=== PATIENT | male | born 1945 | race Caucasian/White ===

== ENCOUNTER 2017-07-21 14:38 | Outpatient (CLI) | payer MEDICARE ==
[2017-07-21 12:53] LABS: BASOPHILS % (AUTO) 0.6 %; EOSINOPHILS # (AUTO) 0.2 10^3/uL (0.0-0.7); EOSINOPHILS % (AUTO) 3.7 %; HCT - HEMATOCRIT 47.9 % (42.0-52.0); HGB - HEMOGLOBIN 16.1 g/dL (14.0-18.0); LYMPHOCYTES # (AUTO) 1.3 10^3/uL (1.5-3.5); MEAN CORPUSCULAR HEMOGLOBIN 33.3 pg (27.0-31.0); MEAN CORPUSCULAR HGB CONC 33.7 g/dL (32.0-36.0); MEAN CORPUSCULAR VOLUME 98.8 fL (80.0-94.0); MEAN PLATELET VOLUME 9.1 fL (7.4-11.4); MONOCYTES # (AUTO) 0.5 10^3/uL (0.0-1.0); MONOCYTES % (AUTO) 8.9 %; NEUTROPHILS % (AUTO) 64.8 %; RED BLOOD COUNT 4.85 10^6/uL (4.70-6.10); RED CELL DISTRIBUTION WIDTH 14.1 % (12.0-15.0); UNCORRECTED WHITE BLOOD COUNT 6.1 x10^3/uL; WHITE BLOOD COUNT 6.1 x10^3/uL (4.8-10.8)
[2017-07-21 13:07] LABS: ALBUMIN/GLOBULIN RATIO 1.6 (1.0-2.2); BILIRUBIN,TOTAL 0.5 mg/dL (0.2-1.0); BUN - BLOOD UREA NITROGEN 11 mg/dL (6-20); CALCIUM 9.8 mg/dL (8.5-10.3); CARBON DIOXIDE - CO2 28 mmol/L (21-32); CHLORIDE 100 mmol/L (101-111); CHOL/HDL RATIO 2.3 (<5.0); CHOLESTEROL 173 mg/dL; CREATININE 1.4 mg/dL (0.6-1.2); GFR - MDRD 50 (>89); GLUCOSE 105 mg/dL (70-100); HDL CHOLESTEROL 74 mg/dL; LDL/HDL RATIO 1.2 (<3.6); POTASSIUM 4.1 mmol/L (3.5-5.0); SODIUM 139 mmol/L (135-145); TOTAL PROTEIN 7.6 g/dL (6.7-8.2); TRIGLYCERIDES 56 mg/dL; VLDL CHOLESTEROL 11 mg/dL
[2017-07-21 13:18] LABS: HEMOGLOBIN A1C 0.61 g/dL
== END 2017-07-21 14:39 | disposition home or self-care (01) ==
LOC: LAB.WCP 14:38
PROVIDERS: ATTEND Family Medicine
DX: I12.9 Hypertensive chronic kidney disease with stage 1 through stage 4 chronic kidney disease, or unspecified chronic kidney disease (principal); N18.9 Chronic kidney disease, unspecified; J44.9 Chronic obstructive pulmonary disease, unspecified; E87.5 Hyperkalemia; K21.9 Gastro-esophageal reflux disease without esophagitis; E78.5 Hyperlipidemia, unspecified; F10.99 Alcohol use, unspecified with unspecified alcohol-induced disorder; Z79.899 Other long term (current) drug therapy; Z12.5 Encounter for screening for malignant neoplasm of prostate
CPT/HCPCS: 36415; 80053; 80061; 83036; 84443; 85025; G0103; 84153

== ENCOUNTER 2018-07-12 09:30 | Outpatient (CLI) | payer MEDICARE, OTHER ==
[2018-07-12 14:59] LABS: PT - PROTHROMBIN TIME 10.8 secs (9.9-12.6)
[2018-07-12 15:07] LABS: BASOPHILS % (AUTO) 0.4 %; EOSINOPHILS # (AUTO) 0.2 10^3/uL (0.0-0.7); LYMPHOCYTES # (AUTO) 1.3 10^3/uL (1.5-3.5); LYMPHOCYTES % (AUTO) 16.9 %; MEAN CORPUSCULAR HEMOGLOBIN 33.4 pg (27.0-31.0); MEAN CORPUSCULAR HGB CONC 34.2 g/dL (32.0-36.0); MEAN CORPUSCULAR VOLUME 97.6 fL (80.0-94.0); MEAN PLATELET VOLUME 9.1 fL (7.4-11.4); MONOCYTES # (AUTO) 0.7 10^3/uL (0.0-1.0); MONOCYTES % (AUTO) 8.9 %; NEUTROPHILS # (AUTO) 5.6 10^3/uL (1.5-6.6); NEUTROPHILS % (AUTO) 70.8 %; PLT - PLATELET COUNT 245 10^3/uL (130-450); RED BLOOD COUNT 4.79 10^6/uL (4.70-6.10); RED CELL DISTRIBUTION WIDTH 13.6 % (12.0-15.0); WHITE BLOOD COUNT 7.9 x10^3/uL (4.8-10.8)
[2018-07-12 15:21] LABS: BILIRUBIN,URINE NEGATIVE (NEGATIVE); GLUCOSE, URINE (UA) NEGATIVE (NEGATIVE); KETONES,URINE (UA) NEGATIVE (NEGATIVE); LEUKOCYTE ESTERASE, URINE NEGATIVE (NEGATIVE); NITRITE,URINE NEGATIVE (NEGATIVE); OCCULT BLOOD,URINE TRACE-INTA (NEGATIVE); PROTEIN,URINE NEGATIVE (NEGATIVE); UROBILINOGEN,URINE 0.2 (NORMAL) E.U./dL (NORMAL)
[2018-07-12 15:39] LABS: BACTERIA,URINE None Seen /HPF (None Seen); CLARITY,URINE CLEAR (CLEAR); RBC,URINE None Seen /HPF (0-5); SQUAMOUS EPITHELIAL CELL,UR NONE SEEN (<= Few)
[2018-07-12 15:47] LABS: ALBUMIN 3.9 g/dL (3.2-5.5); ALBUMIN/GLOBULIN RATIO 1.3 (1.0-2.2); ALKALINE PHOSPHATASE 57 IU/L (42-121); ALT ALANINE AMINOTRANSFERASE 12 IU/L (10-60); AST ASPARTATE AMINOTRANSFERASE 19 IU/L (10-42); BILIRUBIN,TOTAL 0.8 mg/dL (0.2-1.0); BUN - BLOOD UREA NITROGEN 9 mg/dL (6-20); CALCIUM 9.9 mg/dL (8.5-10.3); CARBON DIOXIDE - CO2 26 mmol/L (21-32); CHLORIDE 99 mmol/L (101-111); CHOL/HDL RATIO 3.2 (<5.0); CHOLESTEROL 206 mg/dL; CREATININE 1.4 mg/dL (0.6-1.2); GFR - MDRD 50 (>89); GLUCOSE 99 mg/dL (70-100); HDL CHOLESTEROL 65 mg/dL; LDL CHOLESTEROL,CALCULATED 123 mg/dL; LDL/HDL RATIO 1.9 (<3.6); SODIUM 135 mmol/L (135-145); TOTAL PROTEIN 6.8 g/dL (6.7-8.2); VLDL CHOLESTEROL 18 mg/dL
== END 2018-07-12 23:59 ==
LOC: LAB.WCP 09:30
PROVIDERS: ATTEND Physician Assistant Medical
DX: E78.5 Hyperlipidemia, unspecified (principal); R31.9 Hematuria, unspecified; K21.9 Gastro-esophageal reflux disease without esophagitis; F10.99 Alcohol use, unspecified with unspecified alcohol-induced disorder
CPT/HCPCS: 36415; 80053; 80061; 81001; 83721; 85025; 85610; 87086

== ENCOUNTER 2019-10-14 10:56 | Outpatient (CLI) | payer MEDICARE, OTHER | END 2019-10-14 10:57 | disposition critical access hospital (66) | LOC: EMS 10:56 | PROVIDERS: ATTEND Surgery | DX: R05 Cough (principal); R06.02 Shortness of breath; R68.83 Chills (without fever); R53.1 Weakness | CPT/HCPCS: A0425; A0427 ==

== ENCOUNTER 2019-10-14 11:19 | Emergency (ER) | payer MEDICARE, OTHER ==
[2019-10-14 11:59] LABS: BASOPHILS % (AUTO) 0.3 %; EOSINOPHILS % (AUTO) 0.3 %; HGB - HEMOGLOBIN 12.8 g/dL (14.0-18.0); LYMPHOCYTES % (AUTO) 3.9 %; MEAN CORPUSCULAR HEMOGLOBIN 32.6 pg (27.0-31.0); MEAN CORPUSCULAR HGB CONC 32.9 g/dL (32.0-36.0); MEAN PLATELET VOLUME 10.1 fL (7.4-11.4); MONOCYTES % (AUTO) 8.6 %; NEUTROPHILS % (AUTO) 86.4 %; PLT - PLATELET COUNT 224 10^3/uL (130-450); RED BLOOD COUNT 3.93 10^6/uL (4.70-6.10); RED CELL DISTRIBUTION WIDTH 13.2 % (12.0-15.0)
--- NOTE | 2019-10-14 12:16 | XRAY Report ---
Reason: Productive cough, chills Procedure Date: 10/14/2019 Accession Number: [id number] / [id number] Procedure: XR - Chest 2 View X-Ray CPT Code: 09514 Final Report FULL RESULT: EXAM: CHEST RADIOGRAPHY EXAM DATE: 10/14/2019 11:48 AM. CLINICAL HISTORY: Productive cough, chills. COMPARISON: None. TECHNIQUE: 2 views. FINDINGS: Lungs/Pleura: Bronchial wall thickening centrally. Small amount of reticulation at the lung bases. No other focal consolidation or pleural effusions. No pneumothorax. Mediastinum: Cardiac silhouette size appears unremarkable. Mild vascular calcifications. Other: None. IMPRESSION: Bronchial wall thickening centrally, suggesting airways disease. Small amount of reticulation at the lung bases may represent a combination of atelectasis, scarring, and/or mild pneumonitis. No other focal consolidation or pleural effusions. RADIA
[2019-10-14 12:18] LABS: ALBUMIN 3.5 g/dL (3.2-5.5); ALBUMIN/GLOBULIN RATIO 1.1 (1.0-2.2); BILIRUBIN,TOTAL 0.8 mg/dL (0.2-1.0); CALCIUM 9.1 mg/dL (8.5-10.3); CREATININE 1.3 mg/dL (0.6-1.2); TOTAL PROTEIN 6.8 g/dL (6.7-8.2)
[2019-10-14] MEDS ORDERED: SODIUM CHLORIDE 0.9% 1,000 ML IV ONE (12:36)
[2019-10-14] MEDS ORDERED: methylPREDNISolone SUCCINATE 125 MG/2 ML VIAL IVP STA (12:36)
[2019-10-14] MEDS ORDERED: cefTRIAXone 1 GM in SODIUM CHLORIDE 0.9% MINIBAG 100 ML IV STA (12:36)
[2019-10-14] MEDS ORDERED: ALBUTEROL NEB 2.5 MG/3 ML INH STA (12:36)
[2019-10-14 12:37] LABS: ABNORMAL LYMPHS % (MANUAL) 0 %
[2019-10-14 12:38] LABS: BAND NEUTROPHILS % (MANUAL) 16 %; LYMPHOCYTES # (MANUAL) 0.3 10^3/uL (1.5-3.5); LYMPHOCYTES % (MANUAL) 3 %; MONOCYTES # (MANUAL) 1.2 10^3/uL (0.0-1.0); RBC MORPHOLOGY (MULTIPLE) 1+ POLYCHROMASIA (NORMAL)
--- NOTE | 2019-10-14 12:38 | ED Physician Documentation ---
History of Present Illness - Stated complaint Stated Complaint: COUGH/ - Chief complaint Chief Complaint: Resp - History obtained from History obtained from: Patient (74-year-old gentleman with history of COPD who takes as needed albuterol and nothing else for the COPD presents with 5 days of illness marked with productive cough and some shortness of breath. He did have runny nose and sore throat at the outset but those are better now. He does feel better after a nebulizer treatment on the way and given by EMS. Denies pedal edema calf pain, chest pain. No fevers.), EMS Review of Systems Constitutional: reports: Fatigue. denies: Fever Nose: reports: Rhinorrhea / runny nose Throat: denies: Sore throat Respiratory: reports: Dyspnea, Cough. denies: Hemoptysis, Wheezing GI: denies: Abdominal Pain, Nausea, Vomiting PD PAST MEDICAL HISTORY - Past Medical History Past Medical History: No Cardiovascular: Hypertension, High cholesterol - Past Surgical History Past Surgical History: No - Present Medications Home Medications: Ambulatory Orders Medication Instructions Recorded Confirmed Albuterol Sulf [Ventolin Hfa 1 - 2 puffs INH Q4HR PRN #1 inhaler 10/14/19 Inhaler] Doxycycline Hyclate 100 mg PO BID #14 capsule 10/14/19 Simvastatin 10 mg PO 10/14/19 amLODIPine [Norvasc] 10/14/19 atenoloL [Atenolol] 25 mg PO 10/14/19 predniSONE [Deltasone] 20 mg PO [id number] #21 tab 10/14/19 traZODone [Desyrel] 10/14/19 - Social History Does the pt smoke?: Yes Smoking Status: Current every day smoker Does the pt drink ETOH?: Yes Does the pt have substance abuse?: No - Immunizations Immunizations are current?: Yes PD ED PE NORMAL - Vitals Vital signs reviewed: Yes (Borderline pulse oximetry) - General General: Alert and oriented X 3, No acute distress - HEENT HEENT: PERRL, EOMI - Neck Neck: Supple, no meningeal sign, No bony TTP - Cardiac Cardiac: RRR, No murmur - Respiratory Respiratory: No respiratory distress, Other (Wheezy and rhonchorous throughout, nonlabored) - Abdomen Abdomen: Non tender - Extremities Extremities: No edema, No calf tenderness / cord - Neuro Neuro: Alert and oriented X 3, Normal speech Results - Vitals Vitals: Vital Signs - 24 hr 10/14/19 10/14/19 10/14/19 11:20 13:05 13:44 Temperature 37.4 C Heart Rate 89 80 86 Respiratory 20 20 18 Rate Blood Pressure 134/116 H 97/75 O2 Saturation 90 L 94 Oxygen O2 Source Room air Oxygen Flow Rate 2 - Labs Labs: Laboratory Tests 10/14/19 10/14/19 10/14/19 11:47 11:47 11:47 WBC 11.0 H RBC 3.93 L Hgb 12.8 L Hct 38.9 L MCV 99.0 H MCH 32.6 H MCHC 32.9 RDW 13.2 Plt Count 224 MPV 10.1 Neut # (Auto) Not Reportable Lymph # (Auto) Not Reportable [place] # (Auto) Not Reportable Eos # (Auto) Not Reportable Baso # (Auto) Not Reportable Absolute Nucleated RBC Not Reportable Total Counted 100 Band Neuts % (Manual) 16 H Abnorm Lymph % (Manual) 0 Nucleated RBC % Not Reportable Neutrophils # (Manual) 9.5 H Lymphocytes # (Manual) 0.3 L Monocytes # (Manual) 1.2 H Eosinophils # (Manual) 0.0 Basophils # (Manual) 0.0 Differential Comment MANUAL DIFFERENTIAL Manual Slide Review Indicated Platelet Estimate NORMAL (130-450,000) Platelet Morphology NORMAL APPEARANCE RBC Morph Micro Appear 1+ POLYCHROMASIA Sodium 135 Potassium 4.0 Chloride 97 L Carbon Dioxide 28 Anion Gap 10.0 BUN 51 H Creatinine 1.3 H Estimated GFR (MDRD) 54 L Glucose 126 H Lactic Acid 1.3 Calcium 9.1 Total Bilirubin 0.8 AST 50 H ALT 33 Alkaline Phosphatase 30 L Total Protein 6.8 Albumin 3.5 Globulin 3.3 Albumin/Globulin Ratio 1.1 Lipase 30 - Rads (name of study) 2 view chest x-ray Radiology: EMP read contemporaneously (Central bronchial wall thickening and small amount of reticulation at the lung bases) PD MEDICAL DECISION MAKING - ED course ED course: 74-year-old gentleman presents with a COPD exacerbation, no evidence of coronary event or PE. Feels better already after a DuoNeb in route and received another neb here. Also some antibiotics and steroids. Also some IV fluids for apparent dehydration noted with elevated BUN over his baseline creatinine. After the above treatments he was ambulated in the streeter, he remained with oxygen saturations of 92% or better and feeling good. Departure - Departure Disposition: 01 Home, Self Care Clinical Impression: COPD exacerbation Condition: Good Record reviewed to determine appropriate education?: Yes Instructions: COPD Dc Prescriptions: Albuterol Sulf [Ventolin Hfa Inhaler] 1 - 2 puffs INH Q4HR PRN #1 inhaler PRN Reason: Shortness Of Air/Wheezing Doxycycline Hyclate 100 mg PO BID #14 capsule predniSONE [Deltasone] 20 mg PO [id number] #21 tab Comments: Today you presented by ambulance for an exacerbation of COPD which was treated with antibiotics, inhalers, and steroids. We are also prescribing these things which you need to take as directed. Return anytime if worse. Is is imperative to quit smoking completely says that your lungs do not continue to go downhill. Follow-up with your primary care physician, next available appointment.
[2019-10-14 12:39] LABS: DIFFERENTIAL COMMENT MANUAL DIFFERENTIAL; PLATELET ESTIMATE, MANUAL NORMAL (130-450,000) (NORMAL); PLATELET MORPHOLOGY NORMAL APPEARANCE (NORMAL)
[2019-10-14 13:45] VITALS: BP 97/75
== END 2019-10-14 14:08 | disposition home or self-care (01) ==
LOC: EDUNIT# → ED 11:19
DX: J44.1 Chronic obstructive pulmonary disease with (acute) exacerbation (principal); E86.0 Dehydration; I10 Essential (primary) hypertension; F17.200 Nicotine dependence, unspecified, uncomplicated
CPT/HCPCS: 36415; 71046; 80053; 83605; 83690; 85025; 94640; 96365; 96375; 99284

== ENCOUNTER 2020-10-03 08:00 | Outpatient (CLI) | payer MEDICARE, OTHER ==
[2020-10-03 18:22] LABS: BASOPHILS # (AUTO) 0.1 10^3/uL (0.0-0.1); BASOPHILS % (AUTO) 0.8 %; EOSINOPHILS # (AUTO) 0.2 10^3/uL (0.0-0.7); EOSINOPHILS % (AUTO) 3.1 %; LYMPHOCYTES % (AUTO) 16.7 %; MEAN CORPUSCULAR HEMOGLOBIN 31.4 pg (27.0-31.0); MEAN CORPUSCULAR HGB CONC 32.7 g/dL (32.0-36.0); MEAN PLATELET VOLUME 10.2 fL (7.4-11.4); MONOCYTES # (AUTO) 0.8 10^3/uL (0.0-1.0); MONOCYTES % (AUTO) 13.1 %; NEUTROPHILS % (AUTO) 65.8 %; PLT - PLATELET COUNT 292 10^3/uL (130-450); RED BLOOD COUNT 4.78 10^6/uL (4.70-6.10); RED CELL DISTRIBUTION WIDTH 14.8 % (12.0-15.0); WHITE BLOOD COUNT 6.1 x10^3/uL (4.8-10.8)
[2020-10-03 18:47] LABS: ALBUMIN 4.5 g/dL (3.2-5.5); ALBUMIN/GLOBULIN RATIO 1.6 (1.0-2.2); ALKALINE PHOSPHATASE 40 IU/L (42-121); ALT ALANINE AMINOTRANSFERASE 36 IU/L (10-60); AST ASPARTATE AMINOTRANSFERASE 53 IU/L (10-42); BILIRUBIN,TOTAL 1.2 mg/dL (0.2-1.0); BUN - BLOOD UREA NITROGEN 12 mg/dL (6-20); CALCIUM 10.1 mg/dL (8.5-10.3); CARBON DIOXIDE - CO2 28 mmol/L (21-32); CHLORIDE 95 mmol/L (101-111); CHOL/HDL RATIO 1.8 (<5.0); CHOLESTEROL 181 mg/dL; CREATININE 1.3 mg/dL (0.6-1.2); GLUCOSE 93 mg/dL (70-100); HDL CHOLESTEROL 103 mg/dL; LDL CHOLESTEROL,CALCULATED 65 mg/dL; LDL/HDL RATIO 0.6 (<3.6); TOTAL PROTEIN 7.4 g/dL (6.7-8.2); VLDL CHOLESTEROL 13 mg/dL
== END 2020-10-03 23:59 | disposition home or self-care (01) ==
LOC: LAB.WCP 08:00
PROVIDERS: ATTEND Physician Assistant Medical
DX: I12.9 Hypertensive chronic kidney disease with stage 1 through stage 4 chronic kidney disease, or unspecified chronic kidney disease (principal); J44.9 Chronic obstructive pulmonary disease, unspecified; N18.9 Chronic kidney disease, unspecified; E78.5 Hyperlipidemia, unspecified; E87.5 Hyperkalemia
CPT/HCPCS: 36415; 80053; 80061; 83721; 84443; 85025

== ENCOUNTER 2021-10-31 14:43 | Outpatient (CLI) | payer MEDICARE, OTHER ==
[2021-10-31 18:23] LABS: BASOPHILS # (AUTO) 0.1 10^3/uL (0.0-0.1); BASOPHILS % (AUTO) 0.7 %; EOSINOPHILS # (AUTO) 0.3 10^3/uL (0.0-0.7); EOSINOPHILS % (AUTO) 3.3 %; HCT - HEMATOCRIT 33.5 % (42.0-52.0); HGB - HEMOGLOBIN 10.2 g/dL (14.0-18.0); LYMPHOCYTES # (AUTO) 1.4 10^3/uL (1.5-3.5); LYMPHOCYTES % (AUTO) 17.3 %; MEAN CORPUSCULAR HEMOGLOBIN 22.6 pg (27.0-31.0); MEAN CORPUSCULAR HGB CONC 30.4 g/dL (32.0-36.0); MEAN CORPUSCULAR VOLUME 74.3 fL (80.0-94.0); MEAN PLATELET VOLUME 10.7 fL (7.4-11.4); MONOCYTES # (AUTO) 0.6 10^3/uL (0.0-1.0); MONOCYTES % (AUTO) 7.4 %; NEUTROPHILS # (AUTO) 5.8 10^3/uL (1.5-6.6); NEUTROPHILS % (AUTO) 71.1 %; PLT - PLATELET COUNT 371 10^3/uL (130-450); RED BLOOD COUNT 4.51 10^6/uL (4.70-6.10); RED CELL DISTRIBUTION WIDTH 20.4 % (12.0-15.0); WHITE BLOOD COUNT 8.2 x10^3/uL (4.8-10.8)
[2021-10-31 18:52] LABS: ALBUMIN 4.1 g/dL (3.2-5.5); ALBUMIN/GLOBULIN RATIO 1.3 (1.0-2.2); ALKALINE PHOSPHATASE 58 IU/L (42-121); ALT ALANINE AMINOTRANSFERASE < 10 IU/L (10-60); AST ASPARTATE AMINOTRANSFERASE 15 IU/L (10-42); BILIRUBIN,TOTAL 0.5 mg/dL (0.2-1.0); BUN - BLOOD UREA NITROGEN 15 mg/dL (6-20); CALCIUM 9.9 mg/dL (8.5-10.3); CARBON DIOXIDE - CO2 29 mmol/L (21-32); CHLORIDE 95 mmol/L (101-111); CREATININE 1.5 mg/dL (0.6-1.2); GFR - MDRD 46 (>89); GLUCOSE 108 mg/dL (70-100); LIPASE 31 U/L (22-51); POTASSIUM 4.2 mmol/L (3.5-5.0); SODIUM 133 mmol/L (135-145); TOTAL PROTEIN 7.3 g/dL (6.7-8.2)
== END 2021-10-31 14:44 | disposition home or self-care (01) ==
LOC: LAB.N 14:43
PROVIDERS: ATTEND Physician Assistant Medical
DX: R11.2 Nausea with vomiting, unspecified (principal)
CPT/HCPCS: 36415; 80053; 83690; 85025

== ENCOUNTER 2021-11-06 09:20 | Outpatient (CLI) | payer MEDICARE, OTHER ==
[2021-11-06] MEDS ORDERED: IOVERSOL 320 100 ML VIAL IVP ONE ×2 (09:34→10:55)
[2021-11-06] MEDS ORDERED: IOVERSOL 320 50 ML VIAL ONE (09:34)
[2021-11-06 09:46] LABS: ALBUMIN/GLOBULIN RATIO 1.4 (1.0-2.2); ALKALINE PHOSPHATASE 47 IU/L (42-121); ALT ALANINE AMINOTRANSFERASE < 10 IU/L (10-60); AST ASPARTATE AMINOTRANSFERASE 15 IU/L (10-42); BILIRUBIN,TOTAL 0.3 mg/dL (0.2-1.0); BUN - BLOOD UREA NITROGEN 15 mg/dL (6-20); CALCIUM 8.7 mg/dL (8.5-10.3); CARBON DIOXIDE - CO2 25 mmol/L (21-32); CHLORIDE 103 mmol/L (101-111); CREATININE 1.4 mg/dL (0.6-1.2); GFR - MDRD 50 (>89); GLUCOSE 104 mg/dL (70-100); SODIUM 139 mmol/L (135-145); TOTAL PROTEIN 6.8 g/dL (6.7-8.2)
[2021-11-06] MEDS ORDERED: IOVERSOL 320 50 ML VIAL PO ONE (10:55)
--- NOTE | 2021-11-06 11:11 | CT Report ---
PROCEDURE: Abdomen/Pelvis W INDICATIONS: NAUSEA VOMITING CONTRAST: IV CONTRAST: Optiray 320 ml: 100 PO CONTRAST: Optiray 320 ml50 TECHNIQUE: After the administration of oral and intravenous contrast, 5 mm thick sections acquired from the diap hragms to the symphysis. 5 mm thick coronal and sagittal reformats were acquired. For radiation dos e reduction, the following was used: automated exposure control, adjustment of mA and/or kV accordin g to patient size. COMPARISON: None. FINDINGS: Image quality: Excellent. ABDOMEN: Lung bases: Lung bases are clear. Heart size is normal. Solid organs: Liver and spleen are normal in size and enhancement. Hepatic steatosis is present. Gal lbladder is unremarkable Biliary system is non dilated. Pancreas enhances normally. No adrenal nod ules. Kidneys demonstrate mild atrophy with enhancement, without hydronephrosis. Low-attenuation fo ci are present within the kidneys bilaterally with the largest focus in the left kidney measuring 2.8 , Hounsfield units 10. Peritoneum and bowel: Bowel loops demonstrate normal wall thickness and caliber. No free fluid or a ir. Minimal scattered diverticula. There is a mild thickened appearance of the sigmoid colon without auditory change. It is incompletely distended. Nodes and vessels: No retroperitoneal or mesenteric adenopathy by size criteria. Aorta and inferior vena cava are normal in size. Miscellaneous: No ventral hernias. PELVIS: Genitourinary: Bladder wall thickness is normal. Miscellaneous: No inguinal hernias or adenopathy. Bones: No suspicious bony lesions. No vertebral body compression fractures. IMPRESSION: Mild thickened appearance of the sigmoid colon without associated inflammatory change. This is suspec lazaro to be secondary to incomplete distention. However, very early colitis cannot be definitively excl uded. Reviewed by: Nelida Carson MD on 11/06/2021 11:09 AM PDT Approved by: Nelida Carson MD on 11/06/2021 11:09 AM PDT Station ID: [id number]
== END 2021-11-06 09:21 | disposition home or self-care (01) ==
LOC: DI 09:20
PROVIDERS: ATTEND Physician Assistant Medical
DX: R11.2 Nausea with vomiting, unspecified (principal)
CPT/HCPCS: 36415; 74177; 80053; Q9967

== ENCOUNTER 2021-12-05 12:20 | Outpatient (CLI) | payer MEDICARE, OTHER ==
[2021-12-05 18:56] LABS: BASOPHILS # (AUTO) 0.1 10^3/uL (0.0-0.1); BASOPHILS % (AUTO) 0.8 %; EOSINOPHILS # (AUTO) 0.3 10^3/uL (0.0-0.7); HGB - HEMOGLOBIN 10.5 g/dL (14.0-18.0); LYMPHOCYTES # (AUTO) 1.1 10^3/uL (1.5-3.5); LYMPHOCYTES % (AUTO) 16.7 %; MEAN CORPUSCULAR HEMOGLOBIN 21.6 pg (27.0-31.0); MEAN CORPUSCULAR VOLUME 72.2 fL (80.0-94.0); MEAN PLATELET VOLUME 11.3 fL (7.4-11.4); MONOCYTES # (AUTO) 0.5 10^3/uL (0.0-1.0); MONOCYTES % (AUTO) 7.6 %; NEUTROPHILS # (AUTO) 4.5 10^3/uL (1.5-6.6); NEUTROPHILS % (AUTO) 70.7 %; PLT - PLATELET COUNT 292 10^3/uL (130-450); RED BLOOD COUNT 4.85 10^6/uL (4.70-6.10); RED CELL DISTRIBUTION WIDTH 20.6 % (12.0-15.0); WHITE BLOOD COUNT 6.3 x10^3/uL (4.8-10.8)
[2021-12-05 19:19] LABS: CALCIUM 9.7 mg/dL (8.5-10.3); CREATININE 1.5 mg/dL (0.6-1.2); POTASSIUM 4.3 mmol/L (3.5-5.0)
[2021-12-05 19:48] LABS: FERRITIN 19.9 ng/mL (23.9-336.2)
[2021-12-05 19:52] LABS: FOLATE 6.58 ng/mL (5.90 - >24.8)
== END 2021-12-05 12:21 | disposition home or self-care (01) ==
LOC: LAB.N 12:20
PROVIDERS: ATTEND Physician Assistant Medical
DX: D64.9 Anemia, unspecified (principal)
CPT/HCPCS: 36415; 80048; 82607; 82728; 82746; 85025

== ENCOUNTER 2022-05-05 10:30 | Outpatient (CLI) | payer MEDICARE, OTHER ==
[2022-05-05 12:44] LABS: BASOPHILS % (AUTO) 0.5 %; EOSINOPHILS # (AUTO) 0.2 10^3/uL (0.0-0.7); EOSINOPHILS % (AUTO) 3.4 %; HCT - HEMATOCRIT 32.8 % (42.0-52.0); HGB - HEMOGLOBIN 10.1 g/dL (14.0-18.0); LYMPHOCYTES # (AUTO) 0.9 10^3/uL (1.5-3.5); LYMPHOCYTES % (AUTO) 14.5 %; MEAN CORPUSCULAR HEMOGLOBIN 21.8 pg (27.0-31.0); MEAN CORPUSCULAR HGB CONC 30.8 g/dL (32.0-36.0); MEAN CORPUSCULAR VOLUME 70.8 fL (80.0-94.0); MONOCYTES # (AUTO) 0.7 10^3/uL (0.0-1.0); MONOCYTES % (AUTO) 11.4 %; NEUTROPHILS # (AUTO) 4.5 10^3/uL (1.5-6.6); NEUTROPHILS % (AUTO) 69.9 %; PLT - PLATELET COUNT 272 10^3/uL (130-450); RED BLOOD COUNT 4.63 10^6/uL (4.70-6.10); RED CELL DISTRIBUTION WIDTH 21.4 % (12.0-15.0); WHITE BLOOD COUNT 6.5 x10^3/uL (4.8-10.8)
[2022-05-05 13:13] LABS: ALBUMIN 4.1 g/dL (3.2-5.5); ALBUMIN/GLOBULIN RATIO 1.4 (1.0-2.2); ALKALINE PHOSPHATASE 54 IU/L (42-121); ALT ALANINE AMINOTRANSFERASE 18 IU/L (10-60); AST ASPARTATE AMINOTRANSFERASE 38 IU/L (10-42); BILIRUBIN,TOTAL 0.8 mg/dL (0.2-1.0); BUN - BLOOD UREA NITROGEN 19 mg/dL (6-20); CALCIUM 9.4 mg/dL (8.5-10.3); CARBON DIOXIDE - CO2 29 mmol/L (21-32); CHLORIDE 101 mmol/L (101-111); CHOL/HDL RATIO 1.6 (<5.0); CHOLESTEROL 186 mg/dL; CREATININE 1.4 mg/dL (0.6-1.2); GFR - MDRD 50 (>89); GLUCOSE 103 mg/dL (70-100); HDL CHOLESTEROL 114 mg/dL; LDL CHOLESTEROL,CALCULATED 64 mg/dL; LDL/HDL RATIO 0.6 (<3.6); POTASSIUM 4.3 mmol/L (3.5-5.0); SODIUM 139 mmol/L (135-145); TRIGLYCERIDES 42 mg/dL; VLDL CHOLESTEROL 8 mg/dL
== END 2022-05-05 10:31 | disposition home or self-care (01) ==
LOC: LAB.N 10:30
PROVIDERS: ATTEND Physician Assistant Medical
DX: E78.5 Hyperlipidemia, unspecified (principal); K21.9 Gastro-esophageal reflux disease without esophagitis
CPT/HCPCS: 36415; 80053; 80061; 82728; 83721; 85025

== ENCOUNTER 2023-09-01 12:01 | Outpatient (CLI) | payer MEDICARE, OTHER | END 2023-09-01 23:59 | disposition EMS.NT | LOC: EMS 12:01 | DX: R53.1 Weakness (principal); R42 Dizziness and giddiness ==

== ENCOUNTER 2023-09-02 11:54 | Outpatient (CLI) | payer MEDICARE | END 2023-09-02 23:59 | disposition critical access hospital (66) | LOC: EMS 11:54 | DX: R53.1 Weakness (principal); R29.6 Repeated falls | CPT/HCPCS: A0425; A0429 ==

== ENCOUNTER 2023-09-02 12:24 | Emergency (ER) | payer MEDICARE, OTHER ==
--- NOTE | 2023-09-02 12:56 | ED Physician Documentation ---
History of Present Illness - Stated complaint Stated Complaint: FALL - Chief complaint Chief Complaint: General - Additonal information Additional information: 77-year-old male wth hx of COPD and tobacco dependence, still smoking cigarettes, presents to the emergency department via EMS for increased generalized weakness. Patient says around 2100 last night he had a ground-level fall due to weakness 911 was dispatched who helped him up and offered to take him to the emergency department but patient declined. Patient reports this morning was trying to ambulate he is feeling ongoing increased generalized weakness. He said that he has been having weakness this been getting worse over the last month or so but feels like today it is exceptionally worse. He lives in a trailer/RV with his . He denies any chest pain or shortness of breath he denies any smoking history no cardiac history no neuro history. Patient denies any medication or supplement changes and no recent diet change. On arrival EMS reports patient was hypoglycemic, blood sugar was found to be 56 he was given oral glucose as blood glucose responded well to this. He denies any history of type 2 diabetes he is not taking any insulin or diabetic medication. PD PAST MEDICAL HISTORY - Past Medical History Cardiovascular: Hypertension, High cholesterol - Past Surgical History Past Surgical History: No - Present Medications Home Medications: Ambulatory Orders Medication Instructions Recorded Confirmed Albuterol Sulf [Ventolin Hfa 1 - 2 puffs INH Q4HR PRN #1 inhaler 10/14/19 Inhaler] Simvastatin 10 mg PO DAILY 10/14/19 amLODIPine [Norvasc] 5 mg PO DAILY 10/14/19 atenoloL [Atenolol] 25 mg PO DAILY 10/14/19 Omeprazole 40 mg PO DAILY 09/02/23 - Allergies Allergies/Adverse Reactions: Allergies Allergy/AdvReac Type Severity Reaction Status Date / Time No Known Drug Allergies Allergy Verified 09/02/23 12:38 - Social History Does the pt smoke?: Yes Smoking Status: Current every day smoker Does the pt drink ETOH?: Yes Does the pt have substance abuse?: No - Immunizations Immunizations are current?: Yes PD ED PE NORMAL - Vitals Vital signs reviewed: Yes - General General: Alert and oriented X 3, No acute distress, Other (Cachectic) - HEENT HEENT: Atraumatic, PERRL - Cardiac Cardiac: RRR, No murmur, No gallop, Strong equal pulses - Respiratory Respiratory: Other (Bilateral wheezing) - Abdomen Abdomen: Normal bowel sounds, Non tender - Derm Derm: Normal color - Extremities Extremities: No deformity, No edema, No calf tenderness / cord - Neuro Neuro: Alert and oriented X 3, bait digger 2-12 intact, No motor deficit, Other (Generalized weakness ) Eye Opening: Spontaneous Motor: Obeys Commands Verbal: Oriented GCS Score: 15 Results - Vitals Vitals: Vital Signs - 24 hr 09/02/23 09/02/23 09/02/23 12:34 12:40 13:36 Temperature 36.4 C L Heart Rate 65 72 Respiratory 17 17 17 Rate Blood Pressure 139/115 H O2 Saturation 100 09/02/23 09/02/23 09/02/23 14:01 15:00 16:49 Temperature 36.6 C Heart Rate 88 84 58 L Respiratory 17 16 17 Rate Blood Pressure 125/78 133/76 H 115/96 H O2 Saturation 99 99 98 09/02/23 09/02/23 18:10 18:51 Temperature Heart Rate 70 75 Respiratory 13 17 Rate Blood Pressure 129/70 119/71 O2 Saturation 100 98 Oxygen O2 Source Room air - EKG (time done) 1407 EKG releavant findings:: EKG personally interpreted by author of this note. Relevant findings are: Rate: Rate (enter#) (80) Rhythm: NSR [place]: RAD Intervals: Normal [place], QRS normal QRS: Normal Other comments: Other comments (Pt with mild tremors, a lot of artifact) - Labs Labs: Laboratory Tests 09/02/23 09/02/23 09/02/23 13:20 13:20 13:30 WBC 5.2 RBC 4.04 L Hgb 11.5 L Hct 38.3 L MCV 94.8 H MCH 28.5 MCHC 30.0 L RDW 17.7 H Plt Count 169 MPV 11.0 Neut # (Auto) 4.0 Lymph # (Auto) 0.7 L [place] # (Auto) 0.5 Eos # (Auto) 0.0 Baso # (Auto) 0.0 Absolute Nucleated RBC 0.00 Nucleated RBC % 0.0 Sodium 147 H Potassium 3.6 Chloride 102 Carbon Dioxide 22 Anion Gap 23.0 H BUN 16 Creatinine 1.0 Estimated GFR (MDRD) 73 L Glucose 54 L* Calcium 8.8 Magnesium 1.5 L Total Bilirubin 0.7 AST 91 H ALT 53 Alkaline Phosphatase 90 Total Protein 5.5 L Albumin 3.3 Globulin 2.2 Albumin/Globulin Ratio 1.5 TSH 3.33 Urine Color Urine Clarity Urine pH Ur Specific [place] Urine Protein Urine Glucose (UA) Urine Ketones Urine Occult Blood Urine Nitrite Urine Bilirubin Urine Urobilinogen Ur Leukocyte Esterase Urine RBC Urine WBC Ur Squamous Epith Cells Urine Bacteria Ur Microscopic Review Urine Culture Comments Nasal Adenovirus (PCR) NOT DETECTED Nasal B. parapertussis DNA (PCR) NOT DETECTED Nasal Coronavir 229E PCR NOT DETECTED Nasal Coronavir HKU1 PCR NOT DETECTED Nasal Coronavir NL63 PCR NOT DETECTED Nasal Coronavir OC43 PCR NOT DETECTED Nasal Enterovir/Rhinovir PCR NOT DETECTED Nasal Influenza B PCR NOT DETECTED Nasal Influenza A PCR NOT DETECTED Nasal Parainfluen 1 PCR NOT DETECTED Nasal Parainfluen 2 PCR NOT DETECTED Nasal Parainfluen 3 PCR NOT DETECTED Nasal Parainfluen 4 PCR NOT DETECTED Nasal RSV (PCR) NOT DETECTED Nasal B.pertussis DNA PCR NOT DETECTED Nasal C.pneumoniae (PCR) NOT DETECTED Edwin Human Metapneumo PCR NOT DETECTED Nasal M.pneumoniae (PCR) NOT DETECTED Nasal SARS-CoV-2 (PCR) NOT DETECTED Ethyl Alcohol 09/02/23 09/02/23 14:56 19:32 WBC RBC Hgb Hct MCV MCH MCHC RDW Plt Count MPV Neut # (Auto) Lymph # (Auto) [place] # (Auto) Eos # (Auto) Baso # (Auto) Absolute Nucleated RBC Nucleated RBC % Sodium Potassium Chloride Carbon Dioxide Anion Gap BUN Creatinine Estimated GFR (MDRD) Glucose Calcium Magnesium Total Bilirubin AST ALT Alkaline Phosphatase Total Protein Albumin Globulin Albumin/Globulin Ratio TSH Urine Color YELLOW Urine Clarity HAZY Urine pH 6.0 Ur Specific [place] 1.025 Urine Protein TRACE Urine Glucose (UA) NEGATIVE Urine Ketones >=80 H Urine Occult Blood NEGATIVE Urine Nitrite POSITIVE H Urine Bilirubin SMALL H Urine Urobilinogen 0.2 (NORMAL) Ur Leukocyte Esterase TRACE H Urine RBC 0-5 Urine WBC >25 H Ur Squamous Epith Cells NONE SEEN Urine Bacteria Few Ur Microscopic Review INDICATED Urine Culture Comments INDICATED Nasal Adenovirus (PCR) Nasal B. parapertussis DNA (PCR) Nasal Coronavir 229E PCR Nasal Coronavir HKU1 PCR Nasal Coronavir NL63 PCR Nasal Coronavir OC43 PCR Nasal Enterovir/Rhinovir PCR Nasal Influenza B PCR Nasal Influenza A PCR Nasal Parainfluen 1 PCR Nasal Parainfluen 2 PCR Nasal Parainfluen 3 PCR Nasal Parainfluen 4 PCR Nasal RSV (PCR) Nasal B.pertussis DNA PCR Nasal C.pneumoniae (PCR) Edwin Human Metapneumo PCR Nasal M.pneumoniae (PCR) Nasal SARS-CoV-2 (PCR) Ethyl Alcohol < 10.0 - Rads (name of study) Chest x-ray Relevant Findings:: Final report received, EMP independent interpretation of test (No acute cardiopulmonary abnormalities or findings, No consolidation) PD Medical Decision Making - ED course ED course: 77 yo M presents to ER for concerns of weakness. Per EMS BG was 56 enroute to ED, he Was able to tolerate p.o. glucose without any difficulty. By the time patient arrived to the ER serum glucose Was complete and patient continues to be hypoglycemic, blood sugar was found to be 55. He was given food as well as an IV push of D50 to help with his hypoglycemia and Repeat [id number] blood glucose was found to be 140. RN continues to try and push fluid and drinks that contain high amount of sugar patient is unable to consume many calories. 1700: I spoke with hospitalist to consider hospital admission but unfortunately patient does not meet hospital admission criteria. 1745: Rechecked [id number] blood sugar blood sugar has come down to 80. Patient remains weak and unable to consume a large amount of calories or sugar p.o. Chest x-ray complete no acute cardiopulmonary abnormalities or findings. CBC does not reveal any significant anemia contributing to his weakness, chemistry does not reveal any significant electrolyte abnormalities, TSH is 3.33. Urinalysis is positive for nitrites and leukocytes we will start him on IV ceftriaxone for this. Patient denies any dysuria or pelvic pain. I had a lengthy conversation with the patient's partner Lien who lives at home with patient they do not live in RV if she confirmed that they live in a double wide trailer and she has been having a significant amount of concerns lately about his health. She says that she is 83 and she is having a hard time taking care of him at home he has been eating minimal to nothing daily and continues to smoke cigarettes lien also endorses that she did smoke cigarettes herself. She does not drive so she is unable to come in and pick the patient up. 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 I informed Lien as well as the patient that the next steps would be doing something like a PEG tube or NG tube for enteral feedings but patient Noel adamantly declines this and said that he just wanted to go home. I informed the patient that if he were to go home there is a very good chance that he would from his hypoglycemia and patient said that he was okay with this. I informed the patient that I think he benefit from a discussion with hospice I also discussed this with patient's partner Lien and she agrees that patient would greatly benefit from hospice or long term facility. She said that she be willing to take him home but he has no way of getting home at this time. The patient and patient's partner Lien asked that I call Miriam son-in-law Dominga to discuss the findings of today. I do lengthy conversation with the patient's son-in-law Dominga who said that he has been worried about the length for some time now and says that he is continuing to lose weight at home and continuing to smoke cigarettes. There is possible concern of ongoing alcohol use and he thinks that patient would greatly benefit from hospice as well. Dominga just had a liver biopsy today so was brad novak to come pick the patient up to bring him home the patient is unable to ambulate and needs significant amount of support getting into his trailer so he will be boarded here overnight and want he said that he would be willing to come pick him up later tomorrow afternoon after social work consult. Boarding orders have been placed report given to Dr. De Los Santos due to change of shift will be further managed in the patient's care. Plan is to check patient's blood sugar frequently and start him on IV ceftriaxone for his UTI Departure - Departure Forms: PCP List
[2023-09-02] MEDS ORDERED: SODIUM CHLORIDE 0.9% 500 ML IV ONE (13:01)
[2023-09-02 13:24] LABS: BASOPHILS % (AUTO) 0.2 %; EOSINOPHILS % (AUTO) 0.2 %; HCT - HEMATOCRIT 38.3 % (42.0-52.0); HGB - HEMOGLOBIN 11.5 g/dL (14.0-18.0); LYMPHOCYTES # (AUTO) 0.7 10^3/uL (1.5-3.5); LYMPHOCYTES % (AUTO) 13.5 %; MEAN CORPUSCULAR HEMOGLOBIN 28.5 pg (27.0-31.0); MEAN CORPUSCULAR VOLUME 94.8 fL (80.0-94.0); MONOCYTES # (AUTO) 0.5 10^3/uL (0.0-1.0); MONOCYTES % (AUTO) 9.7 %; PLT - PLATELET COUNT 169 10^3/uL (130-450); RED BLOOD COUNT 4.04 10^6/uL (4.70-6.10); RED CELL DISTRIBUTION WIDTH 17.7 % (12.0-15.0); WHITE BLOOD COUNT 5.2 x10^3/uL (4.8-10.8)
--- NOTE | 2023-09-02 13:32 | XRAY Report ---
PROCEDURE: Chest 2V INDICATIONS: Weakness, wheezing TECHNIQUE: 2 views of the chest were acquired. COMPARISON: Chest x-ray 10/06/2019 FINDINGS: Surgical changes and devices: None. Lungs and pleura: No pleural effusions or pneumothorax. Lungs are clear. Mediastinum: Mediastinal contours appear normal. Heart size is normal. Bones and chest wall: No suspicious bony lesions. Overlying soft tissues appear unremarkable. IMPRESSION: No acute cardiopulmonary process. Reviewed by: Nelida Carson MD on 09/02/2023 1:31 PM [facility] Approved by: Nelida Carson MD on 09/02/2023 1:31 PM [facility] Station ID: [id number]
[2023-09-02 13:42] LABS: ALBUMIN 3.3 g/dL (3.2-5.5); MAGNESIUM 1.5 mg/dL (1.7-2.3)
[2023-09-02 13:45] LABS: ALBUMIN/GLOBULIN RATIO 1.5 (1.0-2.2); BILIRUBIN,TOTAL 0.7 mg/dL (0.2-1.0); CALCIUM 8.8 mg/dL (8.5-10.3); POTASSIUM 3.6 mmol/L (3.5-4.5); TOTAL PROTEIN 5.5 g/dL (6.4-8.9)
[2023-09-02] MEDS ORDERED: DEXTROSE 50% ABBOJECT 25 GM/50 ML SYRINGE IVP STA (13:47)
[2023-09-02 13:58] LABS: THYROID STIMULATING HORMONE 3.33 uIU/mL (0.34-5.60)
[2023-09-02 14:37] LABS: CORONAVIRUS 229E-RESP PCR NOT DETECTED; CORONAVIRUS HKU1-RESP PCR NOT DETECTED; CORONAVIRUS NL63-RESP PCR NOT DETECTED; CORONAVIRUS OC43-RESP PCR NOT DETECTED; HUMAN METAPNEUMOVIRUS NOT DETECTED; INFLUENZA A- RESP PCR PANEL NOT DETECTED; INFLUENZA B - RESP PCR PANEL NOT DETECTED; PARAINFLUENZA VIRUS 1 NOT DETECTED; PARAINFLUENZA VIRUS 2 NOT DETECTED; PARAINFLUENZA VIRUS 3 NOT DETECTED; RHINOVIRUS/ENTEROVIRUS NOT DETECTED; SARS-CoV-2 -RESP PCR PANEL NOT DETECTED
[2023-09-02 14:38] LABS: B. PARAPERTUSSIS- RESP PCR PAN NOT DETECTED; B. PERTUSSIS- RESP PCR PANEL NOT DETECTED; C. PNEUMONIAE- RESP PCR PANEL NOT DETECTED; M. PNEUMONIAE- RESP PCR PANEL NOT DETECTED; PARAINFLUENZA VIRUS 4 NOT DETECTED; RSV- RESP PCR PANEL NOT DETECTED
[2023-09-02 15:04] LABS: BILIRUBIN,URINE SMALL (NEGATIVE); GLUCOSE, URINE (UA) NEGATIVE (NEGATIVE); KETONES,URINE (UA) >=80 mg/dL (NEGATIVE); LEUKOCYTE ESTERASE, URINE TRACE (NEGATIVE); NITRITE,URINE POSITIVE (NEGATIVE); OCCULT BLOOD,URINE NEGATIVE (NEGATIVE); PROTEIN,URINE TRACE mg/dL (NEGATIVE); UROBILINOGEN,URINE 0.2 (NORMAL) E.U./dL (NORMAL)
[2023-09-02 15:20] LABS: CLARITY,URINE HAZY (CLEAR)
[2023-09-02 15:21] LABS: BACTERIA,URINE Few /HPF (None Seen); RBC,URINE 0-5 /HPF (0-5); SQUAMOUS EPITHELIAL CELL,UR NONE SEEN (<= Few); WBC,URINE >25 /HPF (0-3)
[2023-09-02] MEDS ORDERED: ONDANSETRON 4 MG/2 ML VIAL IVP PRN (19:32)
[2023-09-02] MEDS ORDERED: ACETAMINOPHEN 500 MG TABLET PO PRN (19:32)
[2023-09-02] MEDS ORDERED: cefTRIAXone 1 GM VIAL IVP STA (19:49)
[2023-09-03] MEDS ORDERED: IPRATROPIUM/ALBUTEROL 3 ML NEB INH STA (06:08)
[2023-09-03] MEDS ORDERED: PANTOPRAZOLE 40 MG TABLET PO SCH (07:00)
[2023-09-03] MEDS ORDERED: ENOXAPARIN 40 MG/0.4 ML SYRINGE SUBQ SCH (09:00)
--- NOTE | 2023-09-03 09:20 | ED Physician Documentation ---
ED Addendum - Addendum Addendum: 09/03/23 09:19 The patient was jovial and pleasant talking with her briefly this morning. His only complaint was needing the bed lowered slightly. He had had some breakfast. At this point were awaiting social work and issues of placement versus home health or other options.
[2023-09-03 10:12] VITALS: O2SAT 96
[2023-09-03 12:28] VITALS: BP 124/82
--- NOTE | 2023-09-03 13:09 | ED Physician Documentation ---
ED Addendum - Addendum Addendum: 77 yo male here for weakness, he was found to be hypoglycemic, very weak, cachectic, and also has a UTI. There are concerns about discharge planning so social work consult was complete greatly appreciate their advice and recommendations. Unfortunately patient continues to not meet hospital admission criteria and so patient will ultimately need to discharge home. We were able to arrange home health physical therapy, Occupational Therapy, personal clothing laundry aide, nursing to help with patient's severe weakness. Unfortunately he does not have Medicaid set up so he is unable to discharge to a custodial facility at this time but they were told to contact their primary care provider and to work on getting set up with Medicare so that he is able to eventually get into a custodial facility. Patient's partner Lien is aware of the plan I have discussed everything with her today over the telephone and they are aware if they are still having trouble with ongoing falls to bring patient back to the emergency department for further support and resources. Sony son-in-law Dominga he is at bedside also discussed findings with social media developer as well as myself and he is frustrated that patient does not meet hospital admission criteria but also understands that he cannot go to a custodial facility at this time because of insurance issues. He has arranged to get a bedside commode as well as a front wheel walker to help with ambulation issues he is having at home. Pt has been eating wthout difficulty in the ER and has been able to maintain his BG. Meals on Wheels is also being arranged for additional nutrition support. He is safe for discharge at this time and understands strict return precautions. 09/03/23 15:24
[2023-09-03] MEDS ORDERED: cefTRIAXone 1 GM VIAL IVP STA (13:57)
--- NOTE | 2023-09-10 05:04 | ED Physician Documentation ---
ED Addendum - Addendum Addendum: 09/10/23 05:03 Patient was endorsed to me by HEATER MECHANIC Maximo overnight from 09/02 to 09/03. No acute events overnight and handoff to daytime provider at 7am shift change.
== END 2023-09-03 14:26 | disposition home or self-care (01) ==
LOC: EDUNIT# → ED 12:24
DX: E16.2 Hypoglycemia, unspecified (principal); R64 Cachexia; Z68.1 Body mass index [BMI] 19.9 or less, adult; N39.0 Urinary tract infection, site not specified; J44.9 Chronic obstructive pulmonary disease, unspecified; F17.200 Nicotine dependence, unspecified, uncomplicated; Z76.4 Other boarder to healthcare facility
CPT/HCPCS: 36415; 71046; 80053; 81001; 83735; 84443; 85025; 87086; 87633; 93005; 94640; 96372; 96374; 96375; 96376; 99284; 99285; A9270; G0480; J1650; 80320; 81003

== ENCOUNTER 2023-10-22 15:53 | Outpatient (CLI) | payer MEDICARE ==
[2023-10-22 17:49] LABS: BILIRUBIN,URINE NEGATIVE (NEGATIVE); GLUCOSE, URINE (UA) NEGATIVE (NEGATIVE); KETONES,URINE (UA) NEGATIVE (NEGATIVE); LEUKOCYTE ESTERASE, URINE NEGATIVE (NEGATIVE); NITRITE,URINE NEGATIVE (NEGATIVE); OCCULT BLOOD,URINE NEGATIVE (NEGATIVE); PROTEIN,URINE NEGATIVE (NEGATIVE); UROBILINOGEN,URINE 0.2 (NORMAL) E.U./dL (NORMAL)
[2023-10-22 17:51] LABS: CLARITY,URINE CLEAR (CLEAR)
[2023-10-22 18:15] LABS: BACTERIA,URINE None Seen /HPF (None Seen); RBC,URINE 0-5 /HPF (0-5); SQUAMOUS EPITHELIAL CELL,UR RARE Squamous (<= Few); WBC,URINE 0-3 /HPF (0-3)
== END 2023-10-22 15:54 | disposition home or self-care (01) ==
LOC: LAB.N 15:53
PROVIDERS: ATTEND Physician Assistant Medical
DX: N39.0 Urinary tract infection, site not specified (principal)
CPT/HCPCS: 81001; 87086